=== PATIENT | female | born 1960 | race Caucasian/White ===

== ENCOUNTER 2017-10-08 18:06 | Emergency (ER) | payer BC ==
[~2017-10-08] VITALS: Ht 175.3 cm; Wt 104.0 kg
[~2017-10-08 18:06] MED LIST: LEVO150T PO
[2017-10-08] MEDS ORDERED: SODIUM CHLORIDE FLUSH 10ML SYR IVF ONE (19:00)
[2017-10-08] MEDS ORDERED: SODIUM CHLORIDE 0.9% 1,000ML IVBOLUS ONE (19:00)
[2017-10-08] MEDS ORDERED: ALBUTEROL/IPRATROPIUM 2.5MG/0.5MG, 3 ML ONE (19:11)
[2017-10-08] MEDS ORDERED: KETOROLAC 30 MG/1 ML ONE (19:13)
[2017-10-08] MEDS ORDERED: methylPREDNISolone SOD SUCC 125 MG/2 ML ONE (19:13)
[2017-10-08] MEDS ORDERED: ONDANSETRON 2MG/ML, 2ML ONE (19:13)
[2017-10-08 19:28] LABS: BASOPHILS # (AUTO) 0.03 x10^3/uL (0-0.1); BASOPHILS % (AUTO) 1 % (0-1); EOSINOPHILS % (AUTO) 0 % (1-7); LYMPHOCYTES # (AUTO) 1.16 x10^3/uL (1-3.4); LYMPHOCYTES % (AUTO) 21 % (22-44); MD NO; MEAN CORPUSCULAR HEMOGLOBIN 28.8 pg (27.0-34.8); MEAN CORPUSCULAR HGB CONC 33.3 g/dL (32.4-35.8); MEAN CORPUSCULAR VOLUME 86.5 fL (80-100); MEAN PLATELET VOLUME 8.9 fL (7.4-10.4); MONOCYTES # (AUTO) 0.74 x10^3/uL (0.2-0.8); MONOCYTES % (AUTO) 13 % (2-9); NEUTROPHILS # (AUTO) 3.73 x10^3/uL (1.8-6.8); NEUTROPHILS % (AUTO) 66 % (42-75); PLATELET COUNT 262 x10^3/uL (130-400); RED BLOOD COUNT 4.54 x10^6/uL (3.82-5.3)
[2017-10-08] MEDS ORDERED: IPRATROPIUM 0.5 MG/2.5 ML INHA NPPB SCH (19:30)
[2017-10-08] MEDS ORDERED: ONDANSETRON 2MG/ML, 2ML IVP ONE (19:30)
[2017-10-08] MEDS ORDERED: ALBUTEROL SULFATE 2.5 MG/3 ML NPPB SCH (19:30)
[2017-10-08] MEDS ORDERED: methylPREDNISolone SOD SUCC 125 MG/2 ML IVP ONE (19:30)
[2017-10-08] MEDS ORDERED: MORPHINE SULFATE 4 MG/ML, 1ML IVPush PRN (19:30)
[2017-10-08] MEDS ORDERED: KETOROLAC 30 MG/1 ML IVPush ONE (19:30)
[2017-10-08 19:33] LABS: ALANINE AMINOTRANSFERASE 26 U/L (12-78); ALBUMIN 3.5 g/dL (3.4-5.0); ANION GAP 11 mmol/L (5-15); CALCIUM 8.2 mg/dL (8.5-10.1); CHLORIDE 104 mmol/L (98-107); CREATININE 1.03 mg/dL (0.55-1.02)
[2017-10-08 19:37] LABS: ALKALINE PHOSPHATASE 85 U/L (45-117); BILIRUBIN,TOTAL 0.5 mg/dL (0.2-1.0); TOTAL PROTEIN 7.6 g/dL (6.4-8.2); TROPONIN I < 0.015 ng/mL (0.000-0.045)
[2017-10-08 19:41] LABS: RAPID INFLUENZA A POSITIVE (Negative); RAPID INFLUENZA B Negative (Negative)
[2017-10-08] MEDS ORDERED: OSELTAMIVIR 75 MG CAPSULE PO ONE (20:00)
[2017-10-08 20:14] VITALS: BP 104/64
== END 2017-10-08 20:43 | disposition home or self-care (01) ==
LOC: ED 19:47
DX: J09.X2 Influenza due to identified novel influenza A virus with other respiratory manifestations (principal); J40 Bronchitis, not specified as acute or chronic; E03.9 Hypothyroidism, unspecified; Z87.891 Personal history of nicotine dependence
CPT/HCPCS: 36415; 71045; 80053; 83880; 84484; 85025; 87040; 87400; 93005; 94640; 96361; 96374; 96375; 99285; J1885; J2930; J7030

== ENCOUNTER 2018-05-04 22:48 | Emergency (ER) | payer BC ==
[~2018-05-04] VITALS: Ht 172.7 cm; Wt 109.4 kg
[2018-05-04 22:53] VITALS: BP 142/104
== END 2018-05-04 23:41 | disposition home or self-care (01) ==
LOC: ED 23:33
DX: B30.1 Conjunctivitis due to adenovirus (principal); E03.9 Hypothyroidism, unspecified; Z87.891 Personal history of nicotine dependence; Z98.51 Tubal ligation status
CPT/HCPCS: 99283

== ENCOUNTER 2019-08-24 21:24 | Emergency (ER) | payer BC, MEDICAID ==
[~2019-08-24] VITALS: Ht 175.3 cm; Wt 109.8 kg
[2019-08-24 21:27] VITALS: BP 145/90
--- NOTE | 2019-08-24 21:41 | NUR ---
FIRST CONTACT WITH PT. PT C/O COUGH SINCE MONDAY, NON PRODUCTIVE. PT'S AOX4. RESPS EVEN AND UNLABORED.
[2019-08-24] MEDS ORDERED: ALBUTEROL/IPRATROPIUM 2.5MG/0.5MG, 3 ML NPPB ONE (22:00)
--- NOTE | 2019-08-24 22:01 | NUR ---
PT MEDICATED PER EMAR. PT TOLERATED WELL.
[2019-08-24 22:15] LABS: RAPID INFLUENZA A Negative (Negative); RAPID INFLUENZA B Negative (Negative)
--- NOTE | 2019-08-24 23:16 | NUR ---
Patient given discharge instructions and they have confirmed that they understand the instructions. Patient ambulatory with steady gait.
== END 2019-08-24 23:17 | disposition home or self-care (01) ==
LOC: ED 22:09
DX: J20.9 Acute bronchitis, unspecified (principal); E03.9 Hypothyroidism, unspecified; J45.909 Unspecified asthma, uncomplicated; Z87.891 Personal history of nicotine dependence
CPT/HCPCS: 71046; 87400; 99284; J7512

== ENCOUNTER 2019-11-22 16:15 | Observation (INO) | payer MEDICAID ==
[~2019-11-22] VITALS: Ht 172.7 cm; Wt 106.7 kg
--- NOTE | 2019-11-22 16:27 | NUR ---
PT STATES "THE PAIN IS LETTING UP RIGHT NOW. BUT WHEN IT COMES BACK IT'S WORSE."
[2019-11-22] MEDS ORDERED: SODIUM CHLORIDE FLUSH 10ML SYR IVF ONE (17:00)
[2019-11-22] MEDS ORDERED: ONDANSETRON 2MG/ML, 2ML IVPush ONE (17:00)
[2019-11-22 17:29] LABS: BASOPHILS # (AUTO) 0.02 x10^3/uL (0-0.1); BASOPHILS % (AUTO) 0 % (0-1); EOSINOPHILS % (AUTO) 2 % (1-7); LYMPHOCYTES % (AUTO) 9 % (22-44); MD NO; MEAN CORPUSCULAR HEMOGLOBIN 28.2 pg (27.0-34.8); MEAN CORPUSCULAR HGB CONC 33.1 g/dL (32.4-35.8); MEAN CORPUSCULAR VOLUME 85.4 fL (80-100); MEAN PLATELET VOLUME 9.5 fL (7.4-10.4); MONOCYTES # (AUTO) 0.46 x10^3/uL (0.2-0.8); MONOCYTES % (AUTO) 4 % (2-9); NEUTROPHILS # (AUTO) 10.03 x10^3/uL (1.8-6.8); NEUTROPHILS % (AUTO) 85 % (42-75); PLATELET COUNT 334 x10^3/uL (130-400); RED BLOOD COUNT 4.93 x10^6/uL (3.82-5.3); RED CELL DISTRIBUTION WIDTH 13.3 % (9.6-15.2)
[2019-11-22 17:39] LABS: ALBUMIN 3.8 g/dL (3.4-5.0); ANION GAP 8 mmol/L (5-15); CALCIUM 8.8 mg/dL (8.5-10.1); CHLORIDE 107 mmol/L (98-107)
[2019-11-22 17:47] LABS: ALANINE AMINOTRANSFERASE 29 U/L (12-78); ALKALINE PHOSPHATASE 96 U/L (45-117); BILIRUBIN,TOTAL 0.6 mg/dL (0.2-1.0); CREATININE 0.88 mg/dL (0.55-1.02); TOTAL PROTEIN 7.9 g/dL (6.4-8.2); TROPONIN I < 0.015 ng/mL (0.000-0.045)
--- NOTE | 2019-11-22 20:14 | NUR ---
Pt called back to triage for repeat vitals and EKG. Pt states the pain has improved. Pain is not reproducible with palpation.
[2019-11-22] MEDS ORDERED: ONDANSETRON 2MG/ML, 2ML ONE (20:36)
--- NOTE | 2019-11-22 20:40 | NUR ---
URINE SENT TO LAB
[2019-11-22 21:40] LABS: MICROSCOPIC NOT IND
[2019-11-22 21:43] LABS: CULTURE INDICATED? NO
--- NOTE | 2019-11-22 21:51 | NUR ---
md at bedside to assess pt
[2019-11-22] MEDS ORDERED: OMNIPAQUE 350 MG/ML, 100ML BOTTLE ONE (22:06)
--- NOTE | 2019-11-22 22:44 | NUR ---
PT TO CT
--- NOTE | 2019-11-22 22:55 | NUR ---
PT BACK FROM CT AT THIS TIME
--- NOTE | 2019-11-22 23:51 | NUR ---
CT CALLED TO FOLLOW UP ON RESULTS
--- NOTE | 2019-11-23 00:11 | NUR ---
CT CALLED AGAIN TO FOLLOW UP ON CT READ
[2019-11-23] MEDS ORDERED: ONDANSETRON 2MG/ML, 2ML IVPush PRN (01:30)
[2019-11-23] MEDS ORDERED: HYDROmorphone 2 MG/ML, 1ML IV PRN (01:30)
[2019-11-23] MEDS ORDERED: DIPHENHYDRAMINE 25 MG CAPSULE PO PRN (01:30)
--- NOTE | 2019-11-23 01:30 | NUR ---
REPORT TO FLOOR RN ALL QUESTIONS ADDRESSED PT READY FOR TRANSPORT TO HOSPITAL ROOM
[2019-11-23 02:30] VITALS: BP 117/79
[2019-11-23] MEDS: D5%-0.45NACL+KCL 20MEQ 1,000 ML IV SCH ×2 (02:59→14:57)
[2019-11-23] MEDS ORDERED: LEVOTHYROXINE 150 MCG TABLET PO SCH ×2 (06:00→09:00)
[2019-11-23 07:17] VITALS: BP 99/63
[2019-11-23] MEDS ORDERED: ONDANSETRON 2MG/ML, 2ML IV PRN (10:00)
[2019-11-23] MEDS ORDERED: EPHEDRINE 50 MG/ML, 1ML IVPush PRN (10:00)
[2019-11-23] MEDS ORDERED: ACETAMINOPHEN 325 MG TABLET PO PRN (10:00)
[2019-11-23] MEDS ORDERED: LABETALOL 5MG/ML, 20ML IV PRN (10:00)
[2019-11-23] MEDS ORDERED: PROMETHAZINE 25 MG/ML, 1ML IV PRN (10:00)
[2019-11-23] MEDS ORDERED: OXYcodone 5 MG/5 ML ORAL.SOL UDC PO PRN (10:00)
[2019-11-23] MEDS ORDERED: FENTANYL PF 100 MCG/2ML IV PRN (10:00)
[2019-11-23] MEDS ORDERED: MEPERIDINE/PF 25MG/ML,1ML IVPush PRN (10:00)
[2019-11-23] MEDS ORDERED: HYDROmorphone 2 MG/ML, 1ML IVPush PRN (10:00)
[2019-11-23] MEDS ORDERED: hydrALAzine 20 MG/ML, 1ML IV PRN (10:00)
[2019-11-23] MEDS ORDERED: MIDAZOLAM 1 MG/ML, 2ML ONE (11:43)
[2019-11-23] MEDS ORDERED: FENTANYL PF 100 MCG/2ML ONE ×2 (11:43→12:55)
[2019-11-23] MEDS ORDERED: BUPIVACAINE/PF 0.5% ONE (12:16)
[2019-11-23] MEDS ORDERED: EPINEPHRINE 1 MG/ML, 1ML ONE (12:16)
[2019-11-23] MEDS ORDERED: NEOSTIGMINE 1 MG/ML, 10ML ONE (12:34)
[2019-11-23] MEDS ORDERED: ONDANSETRON 2MG/ML, 2ML ONE (12:34)
[2019-11-23] MEDS ORDERED: GLYCOPYRROLATE 0.2MG/1ML, 5ML ONE (12:34)
[2019-11-23] MEDS ORDERED: CEFOTETAN PMX 2GM/50ML 50 ML ONE (12:34)
[2019-11-23] MEDS ORDERED: ROCURONIUM 10MG/ML,5ML ONE (12:34)
[2019-11-23] MEDS ORDERED: CEFAZOLIN 1,000 MG ONE (12:34)
[2019-11-23] MEDS ORDERED: DEXAMETHASONE 4 MG/ML, 1ML ONE (12:34)
[2019-11-23] MEDS ORDERED: SUCCINYLCHOLINE 20 MG/ML, 10ML ONE (12:34)
[2019-11-23] MEDS ORDERED: PROPOFOL 10 MG/ML, 20ML ONE (12:34)
[2019-11-23] MEDS ORDERED: BALANCED SALT OPHTH IRRIG SOLN 18ML ONE (12:35)
[2019-11-23] MEDS ORDERED: KETOROLAC 30 MG/1 ML ONE (12:49)
[2019-11-23] MEDS ORDERED: LIDOCAINE-MPF 2% ,5ML ONE (12:49)
[2019-11-23] MEDS ORDERED: BUPIVACAINE/PF-EPI 0.5% 1:200K INFIL ONE (13:08)
[2019-11-23] MEDS ORDERED: HYDROmorphone 1 MG/ML, 1ML INJ IV PRN (13:30)
[2019-11-23] MEDS ORDERED: HYDROmorphone 2MG TABLET PO PRN (13:30)
[2019-11-23] MEDS: HYDROmorphone 1 MG/ML, 1ML INJ IV PRN ×2 (13:30→13:48)
[2019-11-23] MEDS ORDERED: HYDROmorphone 1 MG/ML, 1ML INJ ONE (13:42)
[2019-11-23 14:30] VITALS: BP 118/74
[2019-11-23] MEDS ORDERED: HYDR2TAB29 PO (17:03)
[2019-11-23] MEDS ORDERED: ONDA4TAB7 PO (17:04)
== END 2019-11-23 18:56 | disposition home or self-care (01) ==
LOC: ED 11-23 01:28 → INTOOBSV 11-23 01:46 → EDIP 11-23 01:46 → 4NE 11-23 02:00
PROVIDERS: ADMIT Surgery; ATTEND Surgery
DX: K35.30 Acute appendicitis with localized peritonitis, without perforation or gangrene (principal); E89.0 Postprocedural hypothyroidism; J45.909 Unspecified asthma, uncomplicated; K66.0 Peritoneal adhesions (postprocedural) (postinfection); K42.9 Umbilical hernia without obstruction or gangrene; E66.9 Obesity, unspecified; Z68.39 Body mass index [BMI] 39.0-39.9, adult
CPT/HCPCS: 36415; 44970; 74177; 80053; 81003; 83690; 84484; 85025; 88304; 93005; 96361; 96374; 99285; G0378; J0171; J0330; J1100; J1170; J1885; J2250; J2405; J2704; J2710; J3010; J3480; J3490; Q0163; Q9967; S0020; J0690